=== PATIENT | female | born 1955 | race Caucasian/White ===

== ENCOUNTER 2018-07-25 14:14 | Inpatient (IN) | payer OTHER ==
[~2018-07-25] VITALS: Ht 167.6 cm; Wt 72.4 kg
[2018-07-25 14:20] VITALS: BP 173/87
[2018-07-25 14:58] LABS: ABSOLUTE BASOPHILS 0.1 thou/uL (0.0-0.2); ABSOLUTE EOSINOPHILS 0.1 thou/uL (0.0-0.7); ABSOLUTE LYMPHOCYTES 1.9 thou/uL (0.8-5.3); ABSOLUTE MONOCYTES 0.4 thou/uL (0.0-1.2); ABSOLUTE NEUTROPHILS 7.1 thou/uL (1.6-8.1); BASOPHILS 0.7 %; EOSINOPHILS 0.7 %; HEMATOCRIT 47.7 % (37.0-47.0); HEMOGLOBIN 16.1 gm/dL (12.0-15.0); LYMPHOCYTES 19.7 %; MCH 29.8 pg (26.0-34.0); MCHC 33.8 g/dL (28.0-37.0); MCV 88.3 fL (80.0-100.0); MONOCYTES 4.5 %; MPV 10.2 fl. (7.2-11.1); NUCLEATED RBCS 0 /100WBC; PLATELET COUNT* 238 thou/uL (150-400); POLYS 74.4 %; RDW-CV 13.1 % (10.5-14.5); WBC 9.5 thou/uL (4.0-11.0)
[2018-07-25 15:03] LABS: CALCIUM 9.4 mg/dL (8.5-10.1); CREATININE 0.9 mg/dL (0.6-1.3); POTASSIUM 3.7 mmol/L (3.5-5.1)
[2018-07-25 15:09] LABS: PROTIME 10.6 Seconds (9.20-11.50)
[2018-07-25 15:16] LABS: TOTAL BILIRUBIN 0.5 mg/dL (<0.1-1.0); TROPONIN-I LEVEL 0.12 ng/mL (<0.06)
[2018-07-25 15:55] VITALS: BP 144/74
[2018-07-25 17:45] VITALS: BP 144/74
--- NOTE | 2018-07-25 18:15 | EKG ---
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 : 1955 Requested By: Eugenio Koehler Order Number: [id number] Nery MD: Ha Wiggins Measurements Intervals [place] Rate: 61 P: -9 NE: 142 QRS: 4 QRSD: 90 T: -15 QT: 440 QTc: 444 Interpretive Statements Sinus rhythm LVH by voltage Nonspecific T abnormalities, inferior leads Borderline ST elevation, lateral leads Baseline wander in lead(s) V5 No previous ECG available for comparison Electronically Signed On 07-25-2018 18:15:38 CDT by Ha Wiggins [email or web address] <ELECTRONICALLY SIGNED> By: Ha Wiggins MD, FACC 07/25/18 1815 1420 1420 Ha Wiggins MD, FACC /EPI
[2018-07-25 18:27] VITALS: BP 146/76
[2018-07-25 18:33] LABS: CK-MB MASS 4.8 ng/mL (<0.5-3.6)
[2018-07-25 18:41] LABS: TROPONIN-I LEVEL 1.23 ng/mL (<0.06)
[2018-07-25 20:00] VITALS: BP 140/74
[2018-07-26] VITALS (7 sets, daily range): BP systolic 116–139; BP diastolic 59–74
--- NOTE | 2018-07-26 04:52 | NUR ---
ASSUMED PATIENT CARE AT 1900. PATIENT ALERT AND ORIENTED TIMES FOUR. MINOR COMPLAINTS OF PAIN NOTED. EDUCATION GIVEN. SECURITIES ATTORNEY COMPLETED DOCUMENTED. PATIENT ABLE TO TOLERATE FOOD WITHOUT NAUSEA OR VOMITTING. COMPLIANT WITH CARE. DRESSING C/D/I. NO TENDERNESS NOTED AT GROIN SITE. HOURLY ROUNDING COMPLETED DOCUMENTED.
[2018-07-26 04:53] LABS: HEMOGLOBIN 14.6 gm/dL (12.0-15.0); MCH 29.7 pg (26.0-34.0); MCHC 33.9 g/dL (28.0-37.0); MCV 87.6 fL (80.0-100.0); MPV 10.5 fl. (7.2-11.1); RBC 4.91 mil/uL (4.20-5.00); RDW-CV 13.3 % (10.5-14.5); WBC 9.8 thou/uL (4.0-11.0)
[2018-07-26 05:14] LABS: ALBUMIN 3.2 g/dL (3.4-5.0); ALKALINE PHOSPHATASE 124 U/L (46-116); ANION GAP 6 mmol/L (7-16); BUN 9 mg/dL (7-18); CALCIUM 8.4 mg/dL (8.5-10.1); CHLORIDE 102 mmol/L (98-107); CHOLESTEROL 214 mg/dL (<200); CK-MB MASS 23.7 ng/mL (<0.5-3.6); CO2 27 mmol/L (21-32); CREATININE 0.7 mg/dL (0.6-1.3); GLUCOSE 313 mg/dL (70-99); HDL CHOLESTEROL 30 mg/dL (>40); LDL CHOLESTEROL 107 mg/dL (<100); SGOT 47 U/L (15-37); SGPT 69 U/L (30-65); SODIUM 135 mmol/L (136-145); TC:HDL 7.1 Ratio (Not establshd); TOTAL BILIRUBIN 0.5 mg/dL (<0.1-1.0); TOTAL PROTEIN 6.3 g/dL (6.4-8.2); TRIGLYCERIDE 387 mg/dL (<150); VLDL 77 mg/dL (<40)
[2018-07-26 05:22] LABS: SERUM ASSESSMENT Moderate Lipemia
[2018-07-26 05:27] LABS: TROPONIN-I LEVEL 5.85 ng/mL (<0.06)
--- NOTE | 2018-07-26 07:30 | NUR ---
ASSUMED CARE OF PT ASSESSED AND DOCUMENTED. PT IS ON CARDIAC MONITER TRACING SR PVC'S HR 76. PT IS A&O WITH NO C/O PAIN. VSS WNL. PT IS AFEBRILE. PT IS ON ROOM AIR WITH CLEAR LUNGS. DRSG ON R GROIN IS CLEAN DRY AND INTACT. DAUGHTER IS AT BEDSIDE. BED IN LOW POSITION CALL LIGHT IS IN REACH. WM.
--- NOTE | 2018-07-26 08:42 | CON ---
[address] [address] CONSULTATION Name: RUSTY CAMACHO Room: [address] IN .R.#: [id number] Admission: 07/25/18 Attend Phys: Guerita Lewis Discharge: Date of : 51 Report #: [id number] THIS REPORT FOR: //name// CC: JENELLE physician/PCP Ha Dolan Cardiac Consultation INDICATION: Non-ST elevation myocardial infarction. HISTORY OF PRESENT ILLNESS: The patient is a very pleasant 62-year-old white female with no prior cardiac history. She was admitted through the emergency room with midsternal chest discomfort that started this morning and waxed and waned throughout the day. Her initial troponin was 1.21 consistent with non-ST elevation myocardial infarction. She denies any history of hypertension, dyslipidemia, diabetes. She quit smoking in 2008. She is without other complaint. With her chest pain, she noted diffuse diaphoresis, but no nausea, vomiting or shortness of breath. Initial EKG showed some subtle ST elevation in leads I and aVL. Otherwise, the EKG was unremarkable. PAST SURGICAL HISTORY: Unremarkable. FAMILY HISTORY: Noncontributory. SOCIAL HISTORY: The patient quit smoking in 2008. ALLERGIES: None documented. HOME MEDICATIONS: None. REVIEW OF SYSTEMS: CONSTITUTIONAL: She denies any convulsions seizure, focal paralysis. In general, there is no unexplained weight loss or fever. RESPIRATORY: She is without cough, significant shortness of breath or underlying respiratory disease. CARDIAC: As outlined above. ENDOCRINE: No diabetes or thyroid disease. GASTROINTESTINAL: No nausea, vomiting, hematemesis, melena, hematochezia, jaundice, or hepatitis. GENITOURINARY: No dysuria or hematuria. HEMATOLOGIC AND LYMPHATIC: No history of anemia, bleeding disorder, blood clots or allergies. PSYCHIATRIC: No depression or anxiety. MUSCULOSKELETAL: No significant arthritis or connective tissue disease. SKIN: No recent rashes, hives or chronic skin conditions. EYES: She wears glasses. She [place] [address] CONSULTATION Name: RUSTY CAMACHO Room: [address]#: [id number] Admission: 07/25/18 Attend Phys: Guerita Lewis Discharge: Date of : 51 Report #: [id number] EARS, NOSE, MOUTH, AND THROAT: She denies decreased hearing or epistaxis. PHYSICAL EXAMINATION: VITAL SIGNS: Stable. Blood pressure 144/74, pulse 65 and regular. GENERAL: This is a pleasant lady in no distress. Mood and affect appropriate. HEENT: Extraocular muscles intact. Mucous membranes are moist. NECK: Shows no jugular venous distention. There are no carotid bruits. CHEST: Reveals clear lung arce without wheezes, rales or rhonchi. CARDIOVASCULAR: Reveals regular rhythm without gallop or murmur. ABDOMEN: Has normal bowel sounds, without tenderness. EXTREMITIES: No clubbing, cyanosis or edema. Peripheral pulses are palpable. IMPRESSION AND RECOMMENDATIONS: 1. Non-ST elevation myocardial infarction. 2. We will proceed with cardiac catheterization and possible coronary intervention. 3. Possible dyslipidemia. Check fasting lipid profile. <ELECTRONICALLY SIGNED> By: Ha Wiggins MD, FACC 07/26/18 0842 1736 [id number] Wiggins MD, FACC /nt
--- NOTE | 2018-07-26 08:54 | NUR ---
PER V.O DR STALLINGS PT MAY EAT.
--- NOTE | 2018-07-26 12:00 | NUR ---
MET WITH PT TO DISCUSS HOME SITUATION/DC PLANNING. PT LIVES ALONE, HAS SUPPORTIVE FAMILY. SHE USES NO EQUIPMENT AND HASN'T HAD HH. STATES HER IN FEBRUARY AND SHE HAS BEEN UNDER STRESS. SUPPORT GIVEN. PT PLANS TO RETURN HOME AT [place]. DISCUSSED PT'S INSURANCE PLAN WITH HER SHE IS OUT OF NETWORK, GAVE INFO ON IN NETWORK FACILITIES AND F/U WITH PCP. SHE STATED HER INSURANCE WILL CHANGE AUG 26. WILL FOLLOW
--- NOTE | 2018-07-26 17:24 | EKG ---
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1955 Requested By: Ha Wiggins Order Number: [id number] Reading MD: Ha Wiggins Measurements Intervals [place] Rate: 68 P: 45 GA: 144 QRS: 9 QRSD: 91 T: 16 QT: 380 QTc: 405 Interpretive Statements Sinus rhythm Ventricular trigeminy Compared to ECG 07/25/2018 14:20:05 Ventricular premature complex(es) now present Left ventricular hypertrophy no longer present T-wave abnormality no longer present ST (T wave) deviation no longer present Electronically Signed On 07-26-2018 17:24:45 CDT by Ha Wiggins [email or web address] <ELECTRONICALLY SIGNED> By: Ha Wiggins MD, FACC 07/26/18 1724 7 7 Ha Wiggins MD, FACC /EPI
--- NOTE | 2018-07-26 17:24 | EKG ---
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[facility] : 1955 Requested By: Ha Wiggins Order Number: [id number] Reading MD: Ha Wiggins Measurements Intervals [place] Rate: 66 P: -1 CT: 159 QRS: 18 QRSD: 94 T: 12 QT: 457 QTc: 479 Interpretive Statements Sinus rhythm Borderline prolonged QT interval ST elevation noted in leads 1, aVL and V6 Compared to ECG 07/25/2018 14:20:05 Left ventricular hypertrophy no longer present T-wave abnormality no longer present Electronically Signed On 07-26-2018 17:23:49 CDT by Ha Wiggins [email or web address] <ELECTRONICALLY SIGNED> By: Ha Wiggins MD, FACC 07/26/18 1723 1834 183 Ha Wiggins MD, FACC /EPI
[2018-07-26 17:42] LABS: CK-MB MASS 15.8 ng/mL (<0.5-3.6)
[2018-07-26 17:44] LABS: TROPONIN-I LEVEL 4.63 ng/mL (<0.06)
--- NOTE | 2018-07-26 17:54 | NUR ---
PT HAS RESTED IN HER ROOM THIS SHIFT WITH FAMILY AT BEDSIDE. PT STARTED ON METFORMIN AND SS. HER DINNER BS WAS 424. SS 12 U AND 2 METFORMIN GIVEN. EDUCATION GIVEN ON DEMAND. HOURLY ROUNDING COMPLETE. PT PROBABLE TO D/C HOME TMRW.
[2018-07-26 19:04] LABS: URINE BILIRUBIN NEGATIVE (Negative); URINE BLOOD NEGATIVE (Negative); URINE CLARITY CLEAR; URINE COLOR YELLOW; URINE GLUCOSE-RANDOM 3+ (Negative); URINE KETONES NEGATIVE (Negative); URINE LEUKOCYTES NEGATIVE (Negative); URINE NITRITE NEGATIVE (Negative); URINE PROTEIN NEGATIVE (Negative); URINE SPECIFIC GRAVITY 1.015 (1.005-1.030); URINE UROBILINOGEN 0.2 E.U./dl (0.2-1.0)
[2018-07-26 21:10] LABS: GLYCOHEMOGLOBIN (HGB A1C) 12.1 % (4.8-5.6)
--- NOTE | 2018-07-26 22:10 | NUR ---
PT ASSESSMENT COMPLETE. PT DENIES PAIN, N/V/D. PT UP TO BATHROOM AD INEZ. DRESSING TO RIGHT GROIN C/D/I. NEW IV PLACE TO RIGHT AC. IV TO LEFT AC REMOVED D/T LEAKAGE. PT TOLERATED WELL. TRACING SR WITH PVC'S ON TELEMETRY. SEE ASSESSMENT FOR FURTHER DETAILS. CLWR. PT DENIES ANY FURTHER NEEDS AT THSI TIME.
[2018-07-27] VITALS: BP 97/53
[2018-07-27 04:00] VITALS: BP 99/58
--- NOTE | 2018-07-27 06:12 | NUR ---
PT HAS REMAINED STABLE T/O THIS SHIFT. PT CONTINUES TO DENY PAIN BUT DOES REPORT A BURNING IN RIGHT THIGH ABOVE KNEE. NO HEMATOMA OR BRUIT PRESENT AT OR NEAR CATH SITE. DRESSING IS C/D/I AND SITE IS SOFT TO TOUCH WITHOUT ANY PAIN OR DISCOMFORT. PT DENIES ANY FURTHER NEEDS. CLWR.
[2018-07-27 08:00] VITALS: BP 106/48
[2018-07-27 12:02] VITALS: BP 100/59
--- NOTE | 2018-07-27 12:02 | NUR ---
RECEIVED WRITTEN REPORT FROM RAMANA @ 0843.PT IS A/O X4, VSS,ASSESSMENT CHARTED.IV RIGHT AC PATENT AND SALINE LOCKED.PT IS CALM AND COOPERATIVE WITH NO C/O PAIN.CATH SITE CLEAN,DRY,INTACT, AND SMALL AMOUNT OF BRUISING.PT IS UP AD INEZ ROOM.PT LEFT RESTING IN BED WITH CALL LIGHT WITHIN REACH.WILL CONTINUE TO MONITOR.
[2018-07-27] MEDS ORDERED: ASPIR 8181 MG PO (12:42)
[2018-07-27] MEDS ORDERED: ATORVASTATIN CA40 MG PO (12:45)
[2018-07-27] MEDS ORDERED: METFORMIN HCL500 MG PO (12:46)
[2018-07-27] MEDS ORDERED: LOPRESSOR25 PO (12:48)
[2018-07-27] MEDS ORDERED: EFFIENT10 MG PO (12:49)
--- NOTE | 2018-07-27 13:01 | NUR ---
PT OK FOR DISCHARGE.PAPERWORK COMPLETED AND GIVEN TO PT.SCRIPTS GIVEN WITH EDUCATION.IV REMOVED.HEART MONITOR REMOVED AND RETURNED TO THE NURSING STATION.ALL PERSONAL BELONGINGS PACKED AND TAKEN WITH PT.PT WHEELED OUT BY NURSING STAFF TO PERSONAL VEHICLE.
--- NOTE | 2018-07-29 12:12 | CARD ---
[address] [address] CARDIAC CATH REPORT Name: RUSTY CAMACHO Room: [address]#: [id number] Admission: 07/25/18 Attend Phys: Ha Wiggins MD Discharge: 07/27/18 Date of : 51 Report #: [id number] THIS REPORT FOR: //name// APPROVED REPORT Study performed: 07/25/2018 15:41:45 Patient Details Patient Status: In-Patient Room #: The patient is a 62 year-old female Event Personnel Ha Wiggins, Sangita Desouza RN, LYLE Fuller, RT ElenaR, Arnaud Gunderson Procedures Performed Left heart catheterization, coronary angiography, left ventriculography and percutaneous coronary intervention to the first diagonal branch of the left anterior descending coronary artery. Indication Non-STEMI (>6 hrs to = 12 hrs) Risk Factors Hypercholesterolemia, Hypertension Admission/Lab Medications/Medications given during procedure Angiomax bolus and infusion Procedure Narrative The patient was brought electively to the Cardiac Catheterization Laboratory and was prepped and draped in a sterile manner. The right femoral was infiltrated with 2% Lidocaine subcutaneous anesthesia. A 6Fr Ultimum sheath was inserted into the right femoral artery. Coronary angiography was performed using coronary diagnostic catheters. The right coronary system was accessed and visualized with a Diagnostic 6Fr JR4 catheter. The left coronary system was accessed and visualized with a Diagnostic 6Fr JL4 catheter. The left ventricle was accessed and visualized with a Diagnostic 6Fr angled pigtail catheter. Left ventricular/Aortic Valve gradient assessed . Closure device was deployed with a Fr 6Fr Angioseal STS. The patient tolerated the procedure well and there were no complications associated with the procedure. There [place] [address] CARDIAC CATH REPORT Name: RUSTY CAMACHO Room: [address]#: [id number] Admission: 07/25/18 Attend Phys: Ha Wiggins MD Discharge: 07/27/18 Date of : 51 Report #: [id number] Intraoperative Conscious Sedation Sedation start time: 16:22 Case end Time: 17:15 Fentanyl 25.0 mcg Versed 1.0 mg Fluoro Time: 14.1 minutes Dose: DAP 72823 cGycm2 1471 mGy Coronary Angiography The patient's coronary anatomy is right dominant. Diagnostic Cath Left Main Normal. LAD Normal proximally with a tubular 40% narrowing in the midportion. The distal vessel appears free of significant disease. Diagonal 1 99% narrowed with thrombus present. Circumflex Normal. OM1 Normal. OM2 Normal. Right Coronary Normal. R PDA Normal. RPLV Normal. Ramus Normal. Left Ventriculography The left ventricle is normal in size with slightly abnormal contractility. The left ventricular ejection fraction is estimated to be 50-55%. Left ventricular wall motion abnormalities are present. There is hypokinesis of the distal anterolateral wall noted. Hemodynamics The aortic pressure is 139/66 mmHg with a mean of 100 mmHg. The left ventricular pressure is 137/8/23 mmHg with a mean of mmHg. The left ventricular end diastolic pressure is 139/2/14 mmHg. Pullback from the left ventricle to the aorta revealed no gradient across the aortic valve. PCI Technique Lesion Anticoagulation was achieved with Angiomax. Percutaneous coronary intervention was performed on the second diagonal branch segment. The lesion stenosis prior to intervention was 99% with ISATU 2 flow. A 6Fr XB LAD 3.5 Guide Catheter was used to engage the ostium. A [employer] 180cm Interventional Guidewire was used [place] [address] CARDIAC CATH REPORT Name: RUSTY CAMACHO Room: [address]#: [id number] Admission: 07/25/18 Attend Phys: Ha Wiggins MD Discharge: 07/27/18 Date of : 51 Report #: [id number] lesion. BALLOON DILATION A Balloon catheter EA Mini Trek RX 2.0x12 was inserted and inflated up to 10:00atm for 12seconds. STENT DEPLOYMENT A drug-eluting stent Selvin RX stent 2.0x15 was inserted and inflated up to 8:00atm for 23seconds. Additional Inflation: 10:00atm for 14seconds. Additional Inflation: 14:00atm for 15seconds. Final angiography reveals 0 % stenosis with ISATU 3 flow. Conclusion 1. Single vessel coronary artery disease as outlined above. 2. Preserved left ventricular systolic function. 3. Normal left ventricular end-diastolic pressure. 4. Left ventricle wall motion abnormalities as noted above. 5. Successful percutaneous coronary intervention to the first diagonal branch of the left anterior descending coronary artery with placement of a drug-eluting stent at the site of 99% narrowing with 0% residual narrowing and ISATU 3 flow to the distal vessel Recommendations 1. Continue dual antiplatelet therapy for one year. 2. Continue aggressive risk factor modification. Medications Administered Aspirin (any) Prasugrel Diagnostic Cath Approved by: Ha Wiggins MD Date/Time: 07/29/2018 12:12:11 <ELECTRONICALLY SIGNED> By: Arnaud Gunderson MD, [facility] 07/29/18 1212 11 121Arnaud Gunderson MD, FACC /INF
== END 2018-07-27 13:34 | disposition home or self-care (01) | DRG 246 ==
LOC: M.CL 14:14 → M.ERS 14:14 → M.2W 15:30 → M.TBA-ER 15:30 → M.TBA-CV 15:30 → M.ERS 15:30 → M.2W 18:17
PROVIDERS: Emergency Medicine; Internal Medicine; ADMIT Internal Medicine Cardiovascular Disease
PROC: 4A023N7 Measurement of Cardiac Sampling and Pressure, Left Heart, Percutaneous Approach (ICD-10-PCS; principal; 2018-07-25)
PROC: B2151ZZ Fluoroscopy of Left Heart using Low Osmolar Contrast (ICD-10-PCS; principal; 2018-07-25)
PROC: B2111ZZ Fluoroscopy of Multiple Coronary Arteries using Low Osmolar Contrast (ICD-10-PCS; principal; 2018-07-25)
PROC: 027034Z Dilation of Coronary Artery, One Artery with Drug-eluting Intraluminal Device, Percutaneous Approach (ICD-10-PCS; principal; 2018-07-25)
DX: I21.4 Non-ST elevation (NSTEMI) myocardial infarction (principal); E11.00 Type 2 diabetes mellitus with hyperosmolarity without nonketotic hyperglycemic-hyperosmolar coma (NKHHC); I25.10 Atherosclerotic heart disease of native coronary artery without angina pectoris; Z60.2 Problems related to living alone; E78.5 Hyperlipidemia, unspecified; E11.65 Type 2 diabetes mellitus with hyperglycemia; Z79.82 Long term (current) use of aspirin; Z79.899 Other long term (current) drug therapy; Z87.891 Personal history of nicotine dependence